=== PATIENT | male | born 1975 | race Caucasian/White ===

== ENCOUNTER 2019-02-06 12:15 | Emergency (ER) | payer OTHER ==
[~2019-02-06 12:15] MED LIST: EPINEPHrine 1 MG/ML 30 ML MDV IVPUSH ONE; EPINEPHrine 1:10,000 1 MG/10 ML Syringe IVPUSH ONE; Sodium Chloride 0.9% 1,000 ML IV ONE
--- NOTE | 2019-02-06 12:42 | EDM.PDOC ---
ED HPI GENERAL MEDICAL PROBLEM - General Chief Complaint: CPR in Progress Stated Complaint: CARDIAC ARREST Time Seen by Provider: 02/06/19 12:16 Source of Information: Reports: EMS History Limitations: Reports: Other (Patient in cardiac arrest and cannot provide any information. All information comes from EMS personnel who are here giving report.) - History of Present Illness INITIAL COMMENTS - FREE TEXT/NARRATIVE: 44-year-old male who presents via ambulance after collapse at home and was found to be in fine ventricular fibrillation with no pulse and no respirations by EMS. Apparently the patient had been receiving bystander CPR prior to the EMS arrival which was 10 minutes after patient's collapse. ACLS protocol was followed and I received a call from the wellness ambassador approximately 20 minutes into the code at the scene with reports that the patient was in PEA and had received multiple rounds of epinephrine and several defibrillations early on with no response. The patient had been intubated and a Faisal device was being used with good chest compressions and femoral pulses present. I advised them to transport the patient and to continue CPR ACLS protocol. There were also advised to give the patient normal saline bolus (which they were already doing). The patient arrives to our emergency department with CPR with Faisal device still and progress and no return of circulation at this point. The compressions were held and the patient was noted to be in a very slow PEA with no pulse. There were no respirations. Chest x-ray was performed quickly and CPR was continued with another round of epinephrine being given. Portal chest x-ray showed no pneumothorax, no hemothorax and good ET tube placement. The patient was rechecked at this time and found to be in the same PEA with no pulse and no respirations. At this point with the having high quality CPR with ACLS protocol being performed since 11:55 AM, further resuscitative efforts were felt to be futile and therefore CPR was stopped and the patient was pronounced at 12: 25 PM. The medical coding instructor was called. Onset: Today (Approximately 11:45 AM.) Duration: Constant Location: Reports: Other (Patient was not feeling well and collapsed) Quality: Reports: Other (Unknown) Severity: Severe Improves with: Reports: None Worsens with: Reports: None Context: Reports: Other (At rest) Associated Symptoms: Reports: Malaise (Per reports by EMS and family) Treatments CEMETERY MANAGER: Reports: CPR, See EMS Report - Related Data Allergies Allergy/AdvReac Type Severity Reaction Status Date / Time No Known Allergies Allergy Verified 02/06/19 16:31 Home Meds: Home Meds Warfarin [Coumadin] 7.5 mg PO ASDIRECTED 06/08/13 [History] Past Medical History Cardiovascular History: Reports: Heart Valve Replacement, Hypertension Neurological History: Reports: Seizure - Past Surgical History Cardiovascular Surgical History: Reports: 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. Multiple family members are here. ED ROS GENERAL - Review of Systems Review Of Systems: Unable To Obtain ED EXAM, CPR - Physical Exam Exam: See Below Limited By: No Limitations General Appearance: WD/WN, Other (In cardiac arrest) Eye Exam: Bilateral Eye: Other (Pupils fixed and dilated bilaterally her sclera are anicteric) Ears: Normal External Exam Nose: Normal Inspection Throat/Mouth: Other (ET tube in place) Head: Atraumatic Neck: Other (Trachea is midline) Respiratory Chest: Lungs Clear, Other (Good air movement with patient being bagged. Breath sounds appear equal bilaterally) Cardiovascular: CPR In Progress, Other (Femoral pulsesations present with Faisal device operating) Extremities: Other (Left upper extremity missing at level of midhumerus) Skin Exam: Cool, Cyanosis Course - Orders/Labs/Meds Orders: Active Orders 24 hr Category Date Time Status Chest 1V Frontal [CR] Stat Exams 02/06/19 12:27 Taken Meds: Medications Discontinued Medications Generic Name Dose Route Start Last Admin Trade Name Freq PRN Reason Stop Dose Admin Epinephrine HCl 1 mg 02/06/19 12:15 02/06/19 12:21 Epinephrine 1:10,000 IVPUSH 02/06/19 12:16 1 mg ONETIME ONE Administration Sodium Chloride 1,000 mls @ 999 mls/hr 02/06/19 12:15 02/06/19 12:23 Normal Saline IV 02/06/19 13:15 999 mls/hr .BOLUS ONE Administration - Radiology Interpretation Free Text/Narrative:: Portable chest x-ray showed ET tube placement with no hemo- and no pneumothorax - Re-Assessments/Exams Free Text/Narrative Re-Assessment/Exam: 02/06/19 12:35: Patient had failed to respond all resuscitative efforts with resultant asystole/PEA after 30 minutes of high quality CPR with ACLS protocol and had been pronounced at 12:25 PM. I conveyed this information to the family with [facility]ari[facility]raz[facility] staff. I attempted to answer their questions. Family is now visiting the patient. Departure - Departure Time of Disposition: 12:25 Disposition: 20 Preliminary Cause of *Q: Cardiac Arrest Condition: Critical () Clinical Impression: Cardiac arrest - Discharge Information Referrals: PCP,None [Primary Care Provider] - Forms: ED Department Discharge - My Orders Last 24 Hours: My Active Orders 02/06/19 12:27 Chest 1V Frontal [CR] Stat - Assessment/Plan Last 24 Hours: My Active Orders 02/06/19 12:27 Chest 1V Frontal [CR] Stat
== END 2019-02-06 15:40 | disposition expired ==
LOC: FB.ED 12:15
DX: I46.9 Cardiac arrest, cause unspecified (principal); I10 Essential (primary) hypertension
CPT/HCPCS: 71045; 92950; 96374; 99285; J0171; J7030